=== PATIENT | female | born 1990 | race Caucasian/White ===

== ENCOUNTER 2023-01-03 14:17 | Emergency (ER) | payer BC, SELFPAY ==
[2023-01-03 14:40] VITALS: BP 124/71; PULSE 69; RESP 12; TEMP 36.4; O2SAT 100
--- NOTE | 2023-01-03 15:12 | ED.SKABFB ---
HPI - Skin/Abscess/Foreign Bdy General Chief complaint: Skin/Abscess/Foreign Body Stated complaint: possible scabies Time Seen by Provider: 01/03/23 15:10 Source: patient, RN notes reviewed and old records reviewed Mode of arrival: ambulatory Limitations: no limitations History of Present Illness HPI narrative: 32 year old female presents to express care with complaints of itchy rash which started about a week ago. Patient reports that her spouse has it also and now her child. Patient reports that she works at [employer] and there is scabies at the facility. Her boss wants her to have scrapings of skin to verify that it is scabies because they are denying that they have scabies in the building. Patient has red raised rash areas on upper abdomen and also on her posterior legs near knee fold, denies no rash on her arms or on her hands states rash is severely itchy. MD complaint: rash Onset (ago): week(s) (1) Quality: pruritic Treatments prior to arrival: none Related Data Home Medications Medication Instructions Recorded Confirmed alprazolam 1 mg tablet See Rx Instructions .Route 01/03/23 01/03/23 .COMPLEX PRN Anxiety baclofen 10 mg tablet See Rx Instructions .Route 01/03/23 01/03/23 .COMPLEX PRN muscle spasms escitalopram oxalate 10 mg tablet 10 mg PO DAILY 01/03/23 01/03/23 Allergies Allergy/AdvReac Type Severity Reaction Status Date / Time No Known Allergies Allergy Verified 01/03/23 15:07 Review of Systems Review of Systems: CONSTITUTIONAL: Denies fever, chills, or sweats. CARDIOVASCULAR: Denies chest pain, palpitations, or edema. RESPIRATORY: Denies cough or dyspnea. SKIN: Reports rash for one week duration that is behind her knees and under her breast that is itchy MUSCULOSKELETAL: Denies joint pain or myalgia. NEUROLOGIC: Denies headache, numbness, or weakness. All systems reviewed & are unremarkable except as noted in HPI and below PMFSH Past Medical History Medical History (Updated 01/04/23 @ 21:14 by Kiley Jackson NP) Anxiety Back pain PIH ( induced hypertension) Surgical History Surgical History (Updated 01/04/23 @ 21:11 by Kiley Jackson NP) History of dilatation and curettage Previous section Family History Family History (Updated 01/04/23 @ 21:12 by Kiley Jackson NP) Mother Hypertension Father Hepatitis C Kidney disorder Social History Social History (Updated 01/04/23 @ 21:14 by Kiley Jackson NP) Smoking packs per day: 1 Smoking cigarettes per day: 20.0 Smoking status: Current every day smoker Tobacco type: cigarettes Alcohol intake: current Alcohol use details: social Substance use: unknown Living arrangements: with family Gender identity (if verbalized by the patient): Female Comments At time of signature, agree with nursing past medical, surgical, social and family history. There is no relevant family history pertinent to the presenting complaint Exam Narrative: GENERAL: Well-appearing, well-nourished, and in no acute distress. HEAD: Normocephalic, atraumatic. EYES: PERRLA, conjunctivae clear, and EOMI. ENT: Mucous membranes moist. Oropharynx without edema, erythema or lesions. NECK: Supple. No lymphadenopathy CHEST: Clear to auscultation. No respiratory distress.SAO2 100% on room air HEART: Regular rate and rhythm. SKIN: Warm, dry.? Patches of small red raised bumps on upper abdomen and on backs of lower legs which are itchy NEURO:? Alert and oriented x3. PSYCH: Normal mood and affect Course Course Emergency Course: Patient is aware of diagnosis, understands and agrees to treatment plan.? Anticipatory guidance given.? Patient agrees to follow-up as directed and is aware of reasons to seek care at the emergency department. Portions of this record may have been created with voice recognition software Level of Care: Express Care Visit Vital Signs Vital sign
== END 2023-01-03 15:36 | disposition home or self-care (01) ==
PROVIDERS: Emergency Provider Registered Nurse; PCP Family Medicine
DX: R21 Rash and other nonspecific skin eruption (principal); Z20.7 Contact with and (suspected) exposure to pediculosis, acariasis and other infestations; F17.210 Nicotine dependence, cigarettes, uncomplicated; F41.9 Anxiety disorder, unspecified
CPT/HCPCS: 99213; G0463

== ENCOUNTER 2023-12-14 09:31 | Emergency (ER) | payer BC, SELFPAY ==
--- NOTE | ~2023-12-14 | XR_ITS ---
EXAMINATION: XR chest 2V DATE: 12/14/2023 10:49 INDICATION: Cough. TECHNIQUE: Frontal and lateral views of the chest were obtained. COMPARISON: CT abdomen and pelvis 12/16/2015 FINDINGS: There is mild atelectasis at left lung base. No pleural effusion or pneumothorax. The heart size is normal. IMPRESSION: 1. Mild atelectasis at left lung base. Reviewed, dictated and finalized at location A.
[2023-12-14 09:32] VITALS: BP 125/66; PULSE 64; RESP 16; TEMP 36.6; O2SAT 100
--- NOTE | 2023-12-14 10:25 | ED.HA ---
HPI - Headache General Chief Complaint: Headache Stated Complaint: headache Time Seen by Provider: 12/14/23 09:53 Source: patient Mode of arrival: ambulatory Limitations: no limitations History of Present Illness HPI Narrative: Patient presents with a headache. She had previously gotten headaches frequently but she has now gone years without having an issue. Today's headache was preceded by what patient called floaters. 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 The patient went into a different room and checked her BP herself and it measured 124/89. She has been nauseated and vomiting. Sleep helps. Mild photophobia and phonophobia. Trialed 800mg ibuprofen and Zofran at home. Lives with her kids who are not symptomatic. No trauma, not on anticoagulation. No pain in temples. Pain is frontal headache associated with some mild bilateral eye pain. She states she has been having an upper respiratory infection for several weeks/months. She has developed a dry chronic cough but attributed this to re-starting smoking when her sister in 2021. She had previously smoked and then had a period where she quit for 2.5 years but restarted on the day of her sister's and continues to be a 1 PPD smoker. She states her PCP had ordered blood/lab work to be one but she hasn't followed through on this. She has also been experiencing hot flashes then cold flashes and her LMP 1 month ago was irregular. Related Data Home Medications Medication Instructions Recorded Confirmed alprazolam 1 mg tablet See Rx Instructions .Route 01/03/23 01/03/23 .COMPLEX PRN Anxiety baclofen 10 mg tablet See Rx Instructions .Route 01/03/23 01/03/23 .COMPLEX PRN muscle spasms escitalopram oxalate 10 mg tablet 10 mg PO DAILY 01/03/23 01/03/23 Allergies Allergy/AdvReac Type Severity Reaction Status Date / Time No Known Allergies Allergy Verified 01/03/23 15:07 [facility] Past Medical History Medical History Anxiety Back pain PIH ( induced hypertension) Surgical History Surgical History History of dilatation and curettage Previous section Family History Family History Mother Hypertension Father Hepatitis C Kidney disorder Sibling , 2021 No problems noted. Social History Social History Smoking packs per day: 1 Smoking cigarettes per day: 20.0 Smoking status: Current every day smoker Tobacco type: cigarettes Additional smoking assessment comments: Quit for 2.5 years; restarted when sister 2021 Alcohol intake: current Alcohol use details: social Substance use: unknown Living arrangements: with family Additional living arrangements comments: Children Occupation/Education: occupation Gender identity (if verbalized by the patient): Female Exam Narrative: GENERAL: Well-appearing, well-nourished, and in no acute distress. HEAD: Normocephalic, atraumatic. EYES: Non injected, non icteric. PERRL; no APD. ENT: Nares clear, no rhinorrhea or epistaxis. NECK: Supple. CHEST: Speaking in full sentences. No respiratory distress. HEART: Regular rate and rhythm. . ABDOMEN: Soft, nondistended. EXTREMITIES: Normal range of motion. No edema. SKIN: Warm, dry, no rash. NEURO: No focal deficits. Alert and oriented x3. Speaks clearly without dysarthria or aphasia. No abnormal movements. Sensation intact throughout. PSYCH: Normal mood and affect. Course Vital Signs Vital signs: Vital Signs Temperature 97.8 F 12/14/23 09:32 Pulse Rate 64 12/14/23 09:32 Respiratory Rate 16 12/14/23 09:32 Blood Pres
[2023-12-14] MEDS: SODIUM CHLORIDE 0.9% IV 1,000 ML 999 ML IV CONT (11:25)
[2023-12-14] MEDS: diphenhydrAMINE HCl INJ 50 MG/ML VIAL 25 MG IV PUSH (11:26)
[2023-12-14] MEDS: KETOROLAC 15 MG/ML VIAL (*BKC) IV PUSH (11:26)
[2023-12-14] MEDS: PROCHLORPERAZINE EDISYLATE 10 MG/2 ML VIAL IV PUSH (11:26)
[2023-12-14] MEDS: dexAMETHasone 2 MG TABLET 10 MG PO (13:08)
[2023-12-14 13:29] VITALS: BP 132/74; PULSE 84; RESP 16; O2SAT 99
--- NOTE | 2023-12-14 13:35 | PC.NURSE ---
1035: Pt states PMD ordered blood work 2 months ago for same symptoms. I just didn't have time to go get it done
[2023-12-14 13:56] LABS: Influenza A QL RT-PCR Negative (Negative); Influenza B QL RT-PCR Negative (Negative); RSV RNA, RT-PCR Negative (Negative); SARS-CoV-2 RNA PCR Negative (Negative)
== END 2023-12-14 13:30 | disposition home or self-care (01) ==
PROVIDERS: Emergency Provider Student in an Organized Health Care Education/Training Program; PCP Family Medicine
DX: R51.9 Headache, unspecified (principal); J41.0 Simple chronic bronchitis; F17.210 Nicotine dependence, cigarettes, uncomplicated; Z20.822 Contact with and (suspected) exposure to COVID-19
CPT/HCPCS: 71046; 87637; 96361; 96374; 96375; 99284; J0780; J1200; J1885; J7030; J8540